=== PATIENT | female | born 1950 | race Caucasian/White ===

== ENCOUNTER 2018-02-14 19:50 | Inpatient (IN) | payer OTHER ==
[~2018-02-14] VITALS: Ht 162.6 cm; Wt 60.8 kg
[2018-02-14] MEDS ORDERED: COZAAR50 MG (20:08)
== END 2018-02-19 08:37 | disposition home or self-care (01) | DRG 481 ==
LOC: ER 19:50 → SEC-K 02-15 08:31 → O/R 02-15 13:25 → SURG 02-15 16:53 → SURH 02-15 16:59 → SURG 02-15 17:10
PROVIDERS: Orthopaedic Surgery
PROC: 0SQC0ZZ Repair Right Knee Joint, Open Approach (ICD-10-PCS; 2018-02-15)
PROC: 0QR Lower Bones, Replacement (ICD-10-PCS; 2018-02-15)
PROC: 0QSB04Z Reposition Right Lower Femur with Internal Fixation Device, Open Approach (ICD-10-PCS; principal; 2018-02-15 12:00)
PROC: B54BZZZ Ultrasonography of Right Lower Extremity Veins (ICD-10-PCS; 2018-02-18)
DX: S72.461A Displaced supracondylar fracture with intracondylar extension of lower end of right femur, initial encounter for closed fracture (principal); D62 Acute posthemorrhagic anemia; W01.0XXA Fall on same level from slipping, tripping and stumbling without subsequent striking against object, initial encounter; Y93.89 Activity, other specified; Y92.89 Other specified places as the place of occurrence of the external cause; Y99.8 Other external cause status; S83.281A Other tear of lateral meniscus, current injury, right knee, initial encounter; M65.861 Other synovitis and tenosynovitis, right lower leg